=== PATIENT | male | born 1970 | race Two or more races ===

== ENCOUNTER → 2021-03-20 | Outpatient (CLI) | payer OTHER ==
--- NOTE | 2021-03-20 10:57 | REP ---
INDICATION: LOW BACK PAIN. COMPARISON: No prior similar studies TECHNIQUE: Sagittal T1, T2, STIR, axial T1 and T2 weighted MR images of the lumbar spine are obtained. FINDINGS: There is uwhp-nk-qdnazfoh multilevel degenerative disc disease with loss of disc height and disc desiccation there is more notable at L4-5 and L5-S1 levels. Vertebral heights are overall preserved. No malalignments. On the sagittal T2 weighted images, no limiting canal stenosis. Conus ends normally at L1 level. On the review of axial images, At L1-2 and L2-3 no significant canal or foraminal narrowing At L3-4 and L4-5 mild diffuse disc bulges without significant canal or foraminal narrowing. There is a small central annular tear at the L4-5 level. At L5-S1 loss of disc height is greater on the right. There is ufiz-fs-rregdvar canal narrowing and olmf-nr-luqbhxzz bilateral recess narrowing and moderate right foraminal narrowing. No significant left foraminal narrowing. Endplate changes are seen at L5-S1 on the right. IMPRESSION: Ldgk-sy-klmywnsk multilevel degenerative disc disease. No limiting canal stenosis or disc herniation. Degenerative disc disease slightly greater at L5-S1 on the right. On the right there is mdfv-rj-jamhvqlo foraminal narrowing, loss of disc height and endplate changes. <Electronically signed by Jonathan Womack > 03/20/21 [id number]
== END ==
LOC: M PLARAD 09:14
PROVIDERS: ATTEND Internal Medicine
DX: M51.36 Other intervertebral disc degeneration, lumbar region (principal); M51.37 Other intervertebral disc degeneration, lumbosacral region

== ENCOUNTER 2022-12-27 15:28 | Emergency (ER) | payer BC, OTHER ==
[~2022-12-27] VITALS: Ht 170.2 cm; Wt 77.0 kg
[2022-12-27 15:30] VITALS: BP 180/100
[2022-12-27] MEDS ORDERED: PANT40TA29 PO (15:49)
[2022-12-27] MEDS ORDERED: DOXA2TAB3 PO (15:49)
[2022-12-27] MEDS ORDERED: NOXI1TAB PO (15:49)
[2022-12-27] MEDS ORDERED: OMEG10002 PO (15:49)
[2022-12-27] MEDS ORDERED: BENA20TA PO (15:49)
[2022-12-27] MEDS ORDERED: METF-838 (15:49)
[2022-12-27] MEDS ORDERED: CELE1CAP4 PO (15:49)
[2022-12-27] MEDS ORDERED: TRAM50TA2 PO (15:49)
[2022-12-27] MEDS ORDERED: ROSU40TA4 PO (15:49)
[2022-12-27] MEDS ORDERED: FENO135C6 (15:49)
[2022-12-27] MEDS ORDERED: METO200T28 PO (15:49)
[2022-12-27] MEDS ORDERED: ONDANSETRON 4MG 2ML VIAL IV ONE (16:40)
[2022-12-27] MEDS ORDERED: NS 1,000 ML IV ONE (16:40)
[2022-12-27] MEDS ORDERED: KETOROLAC 30 MG/ML 1ML VIAL IV ONE (16:40)
[2022-12-27 17:10] LABS: BASO # 0.1 10^3/uL (0.0-0.2); BASO % 0.6 % (0.0-1.0); EOS # 0.1 10^3/uL (0.0-0.5); EOS % 1.3 % (0.0-3.0); HEMATOCRIT 39.7 % (42.0-52.0); HEMOGLOBIN 13.5 g/dl (13.5-17.5); LYMPH % 20.2 % (24.0-44.0); MEAN CORPUSCULAR VOLUME 85.2 fl (80.0-96.0); MONO # 1.1 10^3/uL (0.0-0.8); MONO % 11.2 % (2.0-8.0); NEUTROPHILS # 6.6 10^3/uL (1.5-8.5); NEUTROPHILS % 66.4 % (36.0-66.0); PLATELET COUNT, AUTOMATED 268 10^3/uL (150-450); RED BLOOD COUNT 4.66 10^6/uL (4.30-6.10); WHITE BLOOD COUNT 9.9 10^3/uL (4.0-10.0)
[2022-12-27 17:30] LABS: ALBUMIN 4.1 G/DL (3.2-5.2); BILIRUBIN,DIRECT 0.1 MG/DL (<0.4); BILIRUBIN,TOTAL 0.4 MG/DL (0.3-1.2); TOTAL PROTEIN 7.5 G/DL (5.7-8.2)
[2022-12-27] MEDS ORDERED: fentaNYL 100 MCG/2 ML INJECTION IV ONE (18:00)
[2022-12-27] MEDS ORDERED: TAMSULOSIN 0.4 MG CAP PO ONE (18:00)
[2022-12-27] MEDS ORDERED: OXYC1TAB23 PO (18:08)
[2022-12-27] MEDS ORDERED: NAPR-837 PO (18:08)
[2022-12-27] MEDS ORDERED: FLOM0.4C39 PO (18:08)
[2022-12-27] MEDS ORDERED: ONDA4TAB6 PO (18:08)
== END 2022-12-27 18:17 | disposition home or self-care (01) ==
LOC: M ED 15:28
DX: N13.2 Hydronephrosis with renal and ureteral calculous obstruction (principal); E11.9 Type 2 diabetes mellitus without complications; I10 Essential (primary) hypertension; Z87.442 Personal history of urinary calculi; Z79.811 Long term (current) use of aromatase inhibitors; Z79.4 Long term (current) use of insulin; Z79.02 Long term (current) use of antithrombotics/antiplatelets; Z79.899 Other long term (current) drug therapy
CPT/HCPCS: 74176; 80047; 80076; 81000; 81015; 83690; 85025; 99283; J2405; J3010

== ENCOUNTER → 2025-06-16 | Outpatient (CLI) | payer OTHER ==
[~2025-06-16] MED LIST: BENA20TA PO; CELE1CAP4 PO; DOXA2TAB61 PO; FENO135C6; METF-838; METO200T15 PO; NAPR-837 PO; NOXI1TAB PO; OMEG10002 PO; ONDA-282 PO; OXYC1TAB23 PO; PANT40TA29 PO; ROSU40TA81 PO; TAMS-18 PO; TRAM50TA2 PO
== END ==
LOC: M SLEEP 20:00
PROVIDERS: ATTEND Internal Medicine
DX: G47.30 Sleep apnea, unspecified (principal)